=== PATIENT | male | born 1975 | race Caucasian/White ===

== ENCOUNTER 2018-11-20 07:12 | Observation (INO) ==
[2018-11-20] MEDS ORDERED: MoRPHine SULFATE 4 MG/ML 1 ML CARP\\VIAL IV STA ×2 (07:31→08:32)
[2018-11-20] MEDS ORDERED: ONDANSETRON INJ 2 MG/ML 2 ML VIAL IV STA (07:31)
[2018-11-20] MEDS ORDERED: SODIUM CHLORIDE 0.9% 1000ML 1,000 ML IV SCH (07:32)
[2018-11-20 07:49] LABS: Basophils # (auto) 0.01 K/uL (0-0.2); Basophils % (auto) 0.1 %; Eosinophils # (auto) 0.01 K/uL (0-0.5); Eosinophils % (auto) 0.1 %; Hematocrit (blood only) 42.9 % (42-52); Hemoglobin 15.2 g/dL (14.0-18.0); Immature Granulocytes # (auto) 0.03 K/uL (0.00-0.02); Immature Granulocytes % (auto) 0.2 %; Lymphocytes # (auto) 1.19 K/uL (1.2-3.4); Lymphocytes % (auto) 7.3 %; Mean Corpuscular Hgb Conc 35.4 g/dL (32-36); Mean Corpuscular Volume 83.6 fL (80-100); Mean Platelet Volume 9.2 fL (7.4-10.4); Monocytes # (auto) 0.87 K/uL (0.11-0.59); Monocytes % (auto) 5.3 %; Neutrophils # (auto) 14.28 K/uL (1.4-6.5); Platelet Count 279 K/uL (130-400); RDW Coefficient of Variation 12.9 % (11.5-14.5); RDW Standard Deviation 38.9 fL (36.4-46.3); Red Blood Count 5.13 M/uL (4.7-6.1); White Blood Count 16.39 K/uL (4.8-10.8)
--- NOTE | 2018-11-20 07:52 | Emergency Department Note ---
History of Present Illness General Chief complaint: Abdominal Pain Stated complaint: ABD PAIN Time Seen by Provider: 11/20/18 07:19 History of Present Illness Maximum Pain Intensity: 8 Patient is a 43-year-old male with past medical history significant for GERD who presents the emergency department for evaluation of upper abdominal pain, nausea and vomiting that started last evening. He states his symptoms started around 9:00 last night. He describes noting the generalized onset of bilateral upper abdominal cramping. He states that it was very uncomfortable, and kept him from sleeping. The pain steadily escalated over the next couple hours, at its worst he rated it a 10/10 around 11 PM last night. He had associated nausea, and states that he did vomit about 4 times overnight. He states that the vomiting did help with his discomfort for a short period of time. He tried taking ibuprofen for his symptoms. He feels better when he is standing upright. He denies any fever, chills, diarrhea or stool changes, he moved his bowels overnight, states that it was normal for him, without blood or melena. He denies any urinary symptoms. He states that he did feel that the pain was radiating through to his back slightly, but also states that this could be musculoskeletal because he was hitting golf balls and hitting in the batting cage yesterday. He does note feeling some increased belching and a lot of rumbling in his abdomen he still uncomfortable, but the pain is improved slightly, he rates his discomfort an 8/10. He denies any lower abdominal pain. No sick contacts at home. He denies any chest pain, palpitations or shortness of breath. Home Medications Home Medications Medication Instructions Recorded Confirmed Type omeprazole 20 mg PO DAILY 11/20/18 11/20/18 History Allergies Allergy/AdvReac Type Severity Reaction Status Date / Time No Known Allergies Allergy Unverified 11/20/18 07:44 Past Med/Surg History Medical History GERD (gastroesophageal reflux disease) (Chronic) Obesity (BMI 30.0-34.9) Surgical History History of reconstruction of anterior cruciate ligament tear (Resolved) Social History marital status: Current Living Situation: Family current occupational status: employed Feels Safe at Home: Yes Smoking Status: Never smoker Review of Systems A total of 10 systems reviewed and were otherwise negative Physical Exam Vital Signs Vital Signs - 24 hr 11/20/18 07:16 11/20/18 07:31 11/20/18 08:53 Temperature 36.6 C Temperature Source Oral Oral Sepsis Recent Fever Within 48 Hours No Sepsis New/Unexplained Change in Mental Status No Sepsis Action Taken by Nursing No Action Required Pulse Rate 70 Pulse Rate [Apical] 70 Respiratory Rate 20 18 Respiratory Depth Normal Blood Pressure 160/93 H Blood Pressure [Left Arm] 130/75 Blood Pressure Mean 115 Blood Pressure Mean [Left Arm] 93 Pulse Oximetry 97 97 Oxygen Delivery Method Room Air Room Air 11/20/18 09:47 Temperature Temperature Source Sepsis Recent Fever Within 48 Hours Sepsis New/Unexplained Change in Mental Status Sepsis Action Taken by Nursing Pulse Rate Pulse Rate [Apical] 77 Respiratory Rate 16 Respiratory Depth Blood Pressure Blood Pressure [Left Arm] 137/89 Blood Pressure Mean Blood Pressure Mean [Left Arm] 105 Pulse Oximetry 97 Oxygen Delivery Method CONSTITUTIONAL: Patient is a well-developed, well-nourished 43-year-old male who is awake and alert and in mild distress due to his stated complaint. EYES: Pupils equal, round, reactive to light and accommodation. EOMs intact without nystagmus. Sclera are anicteric. ENT: Tympanic membranes intact, with normal landmarks. External canals are clear. Oral and nasopharynx are clear. Mucous membranes are moist, no lesions, tongue and gums appear normal. CARDIOVASCULAR: Regular rate and rhythm, with normal S1 and S2, no murmur or gallop or rub is heard. No carotid bruits auscultated. No JVD. Peripheral pulses easily palpable. RESPIRATORY: Breath sounds equal and clear to auscultation without wheezes, rales, or rhonchi heard. Full and equal chest expansion without accessory muscle use or retractions. ABDOMEN: Bowel sounds are present. Abdomen is soft, nondistended, tender to percussion and palpation in the right upper quadrant and right mid abdomen, no guarding, rebound or rigidity. There is no pain in the epigastrium. No pain in the right lower quadrant over McBurney's point. INTEGUMENTARY: No lesions or rash, normal skin turgor. LYMPH: No lymphadenopathy. Course The patient was seen and assessed as above. Old records were reviewed. IV lock was initiated. He was hydrated with normal saline solution. He was made n.p.o. He was medicated with morphine 4 mg and Zofran 4 mg IV. CBC with differential, CMP and urinalysis were ordered. Right upper quadrant ultrasound was obtained. Laboratory studies noted a leukocytosis of 16,300, with left shift and bandemia. H&H is normal. Electrolytes are within normal limits. Renal functions are unremarkable. Transaminases and lipase are normal. Gallbladder ultrasound noted gallstones with mild gallbladder distention and gallbladder wall thickening measuring 4 mm with pericholecystic fluid. No intrahepatic ductal dilatation noted. Common bile duct measuring up to 6 mm. Findings are concerning for cholelithiasis with suspicious early acute calculus cholecystitis. Patient was reassessed when he returned from ultrasound. He was slightly more comfortable with the morphine, still rating his discomfort a 5/10 and was agreeable to some more medication for pain. All laboratory and diagnostic imaging studies were discussed with him. Patient was also reviewed with a ttending physician. Consultation was placed with Dr. Fox with general surgery. Patient was assessed by Dr. Fox in the emergency department and will be taken to the OR. Please refer to surgical consultation/H&P for further information. Administered Medications Discontinued Medications Sodium Chloride (Nss 1000ml) 1,000 mls @ 999 mls/hr IV .Q1H1M NERI Stop: 11/20/18 08:32 Last Infusion: 11/20/18 09:44 Dose: 0 mls/hr Documented by: [id number] Admin: 11/20/18 07:53 Dose: 999 mls/hr Documented by: [id number] Morphine Sulfate (Morphine Sulfate) 4 mg IV NOW STA Stop: 11/20/18 07:32 Last Admin: 11/20/18 07:53 Dose: 4 mg Documented by: [id number] Morphine Sulfate (Morphine Sulfate) 4 mg IV NOW STA Stop: 11/20/18 08:33 Last Admin: 11/20/18 08:52 Dose: 4 mg Documented by: [id number] Ondansetron HCl (Zofran) 4 mg IV NOW STA Stop: 11/20/18 07:32 Last Admin: 11/20/18 07:53 Dose: 4 mg Documented by: [id number] Medical Decision Making Differential Diagnosis Differential diagnoses entertained included GERD, gastritis, esophagitis, peptic ulcer disease, acute pancreatitis, biliary colic, acute cholecystitis, ascending cholangitis, infectious versus inflammatory colitis/enteritis, foodborne illness, bowel obstruction, perforation, among others. Medical Records Attestation: I reviewed the patient's medical records. Home Medications Current Medication List: was personally reviewed by me Laboratory Data Attestation: I reviewed the patient's lab results. Result diagrams: 11/20/18 07:35 11/20/18 07:35 Lab Results 11/20/18 11/20/18 Range/Units 07:35 07:35 WBC 16.39 H (4.8-10.8) K/uL RBC 5.13 (4.7-6.1) M/uL Hgb 15.2 (14.0-18.0) g/dL Hct 42.9 (42-52) % MCV 83.6 (80-100) fL MCH 29.6 (25-34) pg MCHC 35.4 (32-36) g/dL RDW Std Deviation 38.9 (36.4-46.3) fL RDW Coeff of Isidro 12.9 (11.5-14.5) % Plt Count 279 (130-400) K/uL MPV 9.2 (7.4-10.4) fL Immature Gran % (Auto) 0.2 % Neut % (Auto) 87.0 % Lymph % (Auto) 7.3 % Baker % (Auto) 5.3 % Eos % (Auto) 0.1 % Baso % (Auto) 0.1 % Immature Gran # (Auto) 0.03 H (0.00-0.02) K/uL Neut # (Auto) 14.28 H (1.4-6.5) K/uL Lymph # (Auto) 1.19 L (1.2-3.4) K/uL Baker # (Auto) 0.87 H (0.11-0.59) K/uL Eos # (Auto) 0.01 (0-0.5) K/uL Baso # (Auto) 0.01 (0-0.2) K/uL Sodium 137 (136-145) mmol/L Potassium 3.9 (3.5-5.1) mmol/L Chloride 104 (98-107) mmol/L Carbon Dioxide 26 (21-32) mmol/L Anion Gap 7.0 (3-11) BUN 15 (7-18) mg/dl Creatinine 0.89 (0.6-1.4) mg/dl Est Cr Clr Drug Dosing 139.2 ml/min Est GFR ( Amer) 123.1 Est GFR (Non-Af Amer) 106.2 BUN/Creatinine Ratio 16.6 (10-20) Glucose 127 H (70-99) mg/dl Calcium 9.1 (8.5-10.1) mg/dl Total Bilirubin 1.0 (0.2-1) mg/dl AST 16 (15-37) U/L ALT 26 (12-78) U/L Alkaline Phosphatase 99 (45-117) U/L Total Protein 7.4 (6.4-8.2) gm/dl Albumin 3.9 (3.4-5.0) gm/dl Globulin 3.5 (2.5-4.0) gm/dl Albumin/Globulin Ratio 1.1 (0.9-2) Lipase 73 (73-393) U/L Imaging Data Attestation: I personally reviewed and interpreted this imaging study as follows: Radiologist's Impression: US gallbladder CLINICAL HISTORY: 43 years-old Male presenting with RUQ PAIN, N/V. TECHNIQUE: Real-time grayscale and limited color Doppler ultrasound imaging of the abdomen limited to the right upper quadrant was performed. COMPARISON: None. FINDINGS: Pancreas: Largely obscured due to overlying bowel gas. Liver: Normal echogenicity and echotexture. The liver measures 19.9 cm in maxim al sagittal dimension. No sonographic evidence of hepatic mass. Main portal vein patent with normal directional flow. Biliary: No intrahepatic biliary ductal dilatation. Common bile duct measures up to 6 mm in diameter. Gallbladder: Gallstones with mild gallbladder distention. Gallbladder wall thi ckening measuring 4 mm. Pericholecystic fluid evident. Right kidney: Normal in appearance without evidence of hydronephrosis. Ascites: None. Other: None. IMPRESSION: Cholelithiasis with findings suspicious for early acute calculus cholecystitis. HIDA scan could be considered for further confirmation of this diagnosis. Blood Pressure Blood Pressure Findings: Elevated blood pressure Blood Pressure Disposition: elevated BP felt to be situational MDM Narrative See ED Course. Impression & Plan Acute calculous cholecystitis Discharge Plan Visit Data Chief Complaint: Abdominal Pain Stated Complaint: ABD PAIN ED Provider: Gael Jade ED Midlevel Provider: Bautista Sanchez Discharge Problem: Acute calculous cholecystitis Patient Disposition: Being Evaluated by Surgeon Discharge Instructions Interventions: ED Discharge Assessment Last Done: 11/20/18 09:49 Forms Stand Alone Forms: Call Back Authorization, [facility] Prescriptions Prescriptions: No Action omeprazole 20 mg capsule,delayed release(DR/EC) 20 mg PO DAILY RF: 0 Referrals Referrals: Renetta Alvarado PA-C [Primary Care Provider] -
[2018-11-20 08:06] LABS: Albumin Level 3.9 gm/dl (3.4-5.0); BUN Creatinine Ratio 16.6 (10-20); Calcium 9.1 mg/dl (8.5-10.1); Creatinine Clr Calc Pharmacy 139.2 ml/min; Est GFR (African American) 123.1; Est GFR (Non-African American) 106.2; Potassium 3.9 mmol/L (3.5-5.1)
[2018-11-20 08:09] LABS: Albumin Globulin Ratio 1.1 (0.9-2); Globulin 3.5 gm/dl (2.5-4.0); Total Protein 7.4 gm/dl (6.4-8.2)
--- NOTE | 2018-11-20 08:21 | Ultrasound Report ---
US gallbladder CLINICAL HISTORY: 43 years-old Male presenting with RUQ PAIN, N/V. TECHNIQUE: Real-time grayscale and limited color Doppler ultrasound imaging of the abdomen limited to the right upper quadrant was performed. COMPARISON: None. FINDINGS: Pancreas: Largely obscured due to overlying bowel gas. Liver: Normal echogenicity and echotexture. The liver measures 19.9 cm in maximal sagittal dimension. No sonographic evidence of hepatic mass. Main portal vein patent with normal directional flow. Biliary: No intrahepatic biliary ductal dilatation. Common bile duct measures up to 6 mm in diameter. Gallbladder: Gallstones with mild gallbladder distention. Gallbladder wall thickening measuring 4 mm. Pericholecystic fluid evident. Right kidney: Normal in appearance without evidence of hydronephrosis. Ascites: None. Other: None. IMPRESSION: Cholelithiasis with findings suspicious for early acute calculus cholecystitis. HIDA scan could be co nsidered for further confirmation of this diagnosis. Electronically signed by: Inocencio Hanks M.D. 11/20/2018 8:20 AM
[2018-11-20] MEDS ORDERED: BUPIVACAINE 0.5 % 5 MG/1 ML MPF 30ML VIAL ONE (09:46)
[2018-11-20] MEDS ORDERED: DEXAMETHASONE SOD INJ 4 MG/ML VIAL ONE (09:48)
[2018-11-20] MEDS ORDERED: NEOSTIGMINE METHYLSULFATE 5 MG/5 ML SYR ONE (09:48)
[2018-11-20] MEDS ORDERED: GLYCOPYRROLATE 0.2 MG/ML VIAL ONE (09:48)
[2018-11-20] MEDS ORDERED: ONDANSETRON INJ 2 MG/ML 2 ML VIAL ONE (09:48)
[2018-11-20] MEDS ORDERED: LIDOCAINE HCL 2% 2 ML VIAL/AMP(20MG/ML) INFIL ONE (09:48)
[2018-11-20] MEDS ORDERED: MIDAZOLAM HCL 1 MG/ML 2ML VIAL ONE (09:48)
[2018-11-20] MEDS ORDERED: PROPOFOL IV EMULSION 10 MG/ML 20 ML VIAL IV ONE (09:48)
[2018-11-20] MEDS ORDERED: HYDROmorphone INJ 1 MG/ML SYRINGE IV PRN (09:49)
[2018-11-20] MEDS ORDERED: ONDANSETRON INJ 2 MG/ML 2 ML VIAL IV PRN (09:49)
[2018-11-20] MEDS ORDERED: fentaNYL citrate 100 MCG/2 ML VIAL ONE (09:49)
[2018-11-20] MEDS ORDERED: KETOROLAC 30 MG/ML VIAL IV PRN (09:49)
[2018-11-20] MEDS ORDERED: ATROPINE SULFATE 0.1 MG/ML 10ML SYR IV PRN (09:49)
--- NOTE | 2018-11-20 09:49 | Anesthesiology Consultation ---
Date of Service November 20, 2018 Assessment & Plan (1) Encounter for pre-operative examination: Chart Review Chart Review: Acceptable Risk for Surgery History Surgery Operation Date: 11/20/18 10:00 Proposed Procedures p Laparoscopic Cholecystectomy - Felix Fox DO, FACS Height/Weight Height: 5 ft 11 in Weight: 112.3 kg Allergies Allergy/AdvReac Type Severity Reaction Status Date / Time No Known Allergies Allergy Unverified 11/20/18 07:44 Medications Home Medications Medication Instructions Recorded Confirmed Last Taken omeprazole 20 mg PO DAILY 11/20/18 11/20/18 11/20/18 Past Medical History Medical History GERD (gastroesophageal reflux disease) (Chronic) Obesity (BMI 30.0-34.9) Past Surgical History Surgical History History of reconstruction of anterior cruciate ligament tear (Resolved) Social History Smoking Status: Never smoker Physical Exam Vital Signs Last Vital Signs Temp 36.6 C 11/20/18 07:16 Pulse 77 11/20/18 09:47 Resp 16 11/20/18 09:47 BP 137/89 11/20/18 09:47 Pulse Ox 97 11/20/18 09:47 Testing Laboratory Results 11/20/18 07:35 11/20/18 07:35
--- NOTE | 2018-11-20 09:53 | History & Physical Report ---
Date of Service November 20, 2018 Assessment & Plan (1) Cholecystitis with cholelithiasis: 43-year-old male with acute calculus cholecystitis. Plan for laparoscopic cholecystectomy, possible cholangiogram The risks the procedure were discussed to include but not limited to bleeding, infection, retained stone, bile leak, damage surrounding structures including common bile duct, need for future more extensive surgery, conversion to open, and the risk of anesthesia Antibiotics preop Plan of care discussed the patient, all questions were answered, the patient expressed understanding agrees the plan of care as stated. Present on Admission?: Yes History of Present Illness Primary Care Provider: Renetta Alvarado PA-C 43-year-old male presented to the emergency department with abdominal pain starting last evening. He had ice cream in about 1 to 2 hours later he started noticing some cramping pain in his right upper quadrant along with some bloating and nausea. He did have some emesis. Pain persisted and this morning presented to the emergency department where he was otherwise stable. His white blood cell count was elevated but had normal LFTs, and an ultrasound showed cholelithiasis with concerns for cholecystitis but a normal common bile duct. Otherwise healthy, not on any blood thinners. He has never had symptoms like this before. Allergies Allergy/AdvReac Type Severity Reaction Status Date / Time No Known Allergies Allergy Unverified 11/20/18 07:44 Home Medications Home Medications Medication Instructions Recorded Confirmed Type omeprazole 20 mg PO DAILY 11/20/18 11/20/18 History Past Med/Surg History Medical History GERD (gastroesophageal reflux disease) (Chronic) Obesity (BMI 30.0-34.9) Surgical History History of reconstruction of anterior cruciate ligament tear (Resolved) Social History marital status: Current Living Situation: Family current occupational status: employed Feels Safe at Home: Yes Smoking Status: Never smoker Review of Systems Review of Systems: All systems reviewed & are unremarkable except as noted in HPI & below Physical Exam Constitutional: WD/WN, vitals as above Eyes: PERRL, conjunctivae normal, anicteric sclerae ENMT: external ear and nose normal, oropharynx normal Neck: trachea midline, no thyromegaly Respiratory: normal respiratory effort, lungs clear to auscultation Cardiovascular: RRR, no murmur, no edema Gastrointestinal (Abdomen): Percussion/Palpation: + abdomen tender (Tender to palpation in right upper quadrant, negative Rausch's) and abdomen soft; no guarding and abdomen not rigid Musculoskeletal: no cyanosis or clubbing, extremities motor strength 5/5 Skin: no rashes, warm and dry Neurologic: patellar DTR's 2+ bilat, sensation intact Psychiatric: A+Ox3, euthymic affect Lymphatic: no cervical or axillary lymphadenopathy Results & Data Vital Signs (Past 12 Hours) Vital Signs Temp Pulse Pulse Resp BP BP Pulse Ox 11/20/18 09:47 77 16 137/89 97 11/20/18 08:53 70 18 130/75 97 11/20/18 07:16 36.6 C 70 20 160/93 H 97 Laboratory Results Laboratory Results - last 24 hr 11/20/18 11/20/18 07:35 07:35 WBC 16.39 H RBC 5.13 Hgb 15.2 Hct 42.9 MCV 83.6 MCH 29.6 MCHC 35.4 RDW Std Deviation 38.9 RDW Coeff of Isidro 12.9 Plt Count 279 MPV 9.2 Immature Gran % (Auto) 0.2 Neut % (Auto) 87.0 Lymph % (Auto) 7.3 Bond % (Auto) 5.3 Eos % (Auto) 0.1 Baso % (Auto) 0.1 Immature Gran # (Auto) 0.03 H Neut # (Auto) 14.28 H Lymph # (Auto) 1.19 L Bond # (Auto) 0.87 H Eos # (Auto) 0.01 Baso # (Auto) 0.01 Sodium 137 Potassium 3.9 Chloride 104 Carbon Dioxide 26 Anion Gap 7.0 BUN 15 Creatinine 0.89 Est Cr Clr Drug Dosing 139.2 Est GFR ( Amer) 123.1 Est GFR (Non-Af Amer) 106.2 BUN/Creatinine Ratio 16.6 Glucose 127 H Calcium 9.1 Total Bilirubin 1.0 AST 16 ALT 26 Alkaline Phosphatase 99 Total Protein 7.4 Albumin 3.9 Globulin 3.5 Albumin/Globulin Ratio 1.1 Lipase 73 Diagnostic Findings US gallbladder CLINICAL HISTORY: 43 years-old Male presenting with RUQ PAIN, N/V. TECHNIQUE: Real-time grayscale and limited color Doppler ultrasound imaging of the abdomen limited to the right upper quadrant was performed. COMPARISON: None. FINDINGS: Pancreas: Largely obscured due to overlying bowel gas. Liver: Normal echogenicity and echotexture. The liver measures 19.9 cm in maximal sagittal dimension. No sonographic evidence of hepatic mass. Main portal vein patent with normal directional flow. Biliary: No intrahepatic biliary ductal dilatation. Common bile duct measures up to 6 mm in diameter. Gallbladder: Gallstones with mild gallbladder distention. Gallbladder wall thickening measuring 4 mm. Pericholecystic fluid evident. Right kidney: Normal in appearance without evidence of hydronephrosis. Ascites: None. Other: None. IMPRESSION: Cholelithiasis with findings suspicious for early acute calculus cholecystitis. HIDA scan could be considered for further confirmation of this diagnosis.
[2018-11-20] MEDS ORDERED: TRANEXAMIC ACID 100 MG/ML 10 ML VIAL ONE (10:16)
[2018-11-20] MEDS ORDERED: KETOROLAC 30 MG/ML VIAL ONE (10:59)
--- NOTE | 2018-11-20 11:06 | Operative Report ---
Post Operative Report Pre & Post Diagnosis Operation Date: 11/20/18 10:00 Pre-Op Diagnosis: Cholecystitis with cholelithiasis Post-Op Diagnosis: Cholecystitis with cholelithiasis Procedure Operation Date: 11/20/18 10:00 Actual Procedures p Laparoscopic Cholecystectomy(Not Applicable) - Felix Fox DO, MAUDE Surgeon Felix Fox DO, FACS Epidemiology Investigator Meena Santana Estimated Blood Loss 4 Findings Consistent with Post-Op Diagnosis Acute cholecystitis. Critical view of safety obtained, cystic duct and artery doubly clipped and divided. Good hemostasis. Specimens Gallbladder Anesthesia Type General Complications none Disposition Accompanied Patient To Recovery: No Disposition: Recovery Room Indications 43-year-old male presented with signs and symptoms cystitis confirmed by ultrasound. Plan for laparoscopic cholecystectomy with possible cholangiogram. The risks of the procedure were discussed, all questions were answered, and the patient agreed to proceed with surgery as planned. Description of Procedure The patient was properly identified, consented, and taken to the operating room where he was placed in the supine position. General endotracheal anesthesia was induced. SCDs and a safety belt were placed. Preoperative antibiotics were administered. The patient's abdomen was prepped and draped in the standard sterile fashion. A surgical timeout was performed and all parties were in agreement that this was the correct patient and procedure to be performed and we continued as planned. An incision was made superior and to the left of the umbilicus overlying the rectus muscle and the Veress needle was inserted. Saline drop test confirmed entry into the peritoneum. The abdomen was insufflated with carbon dioxide which the patient tolerated without incident. The abdomen was then entered using the Optiview technique and a 5 mm trocar. The laparoscope was inserted and no damage from initial trocar or Veress needle placement was noted, no gross abnormalities were noted within the 4 quadrants of the abdomen. An 11 mm port was placed in the subxiphoid position and two 5 mm ports were then placed in the right subcostal position. The patient was placed in reverse Trendelenburg position and rotated towards the left. The gallbladder was acutely inflamed. It was aspirated to allow for retraction. The dome of the gallbladder was retracted towards the left upper quadrant and the infundibulum was retracted toward the right lower quadrant revealing Calot's triangle. Peritoneal attachments were taken down with electrocautery and blunt dissection. The cystic duct and artery were circumferentially dissected. A window of safety was obtained showing the cystic duct entering the gallbladder with no aberrant structures noted. The cystic duct and artery were doubly clipped and divided. The gallbladder was then lifted off the gallbladder fossa with electrocautery. The gallbladder was placed in an Endo Catch bag and removed through the subxiphoid port site. The right upper quadrant was irrigated and hemostasis was found to be good. 5 mm trochars were removed under direct visualization and the abdomen was allowed to collapse. The subxiphoid port site fascia was closed with 0 Vicryl suture. The wound was irrigated, and the skin of all ports was closed with 4-0 Monocryl subcuticular sutures. Dermabond was placed over the wounds. The patient was extubated in the operating room and taken to the PACU where he recovered without apparent incident. All sponge, instrument and needle counts were correct at the conclusion of the procedure. The patient tolerated the procedure well. The physician's senior assistant manager was present and scrubbed for the entirety of the case and was essential in positioning the patient, prepping and draping, retraction and exposure, driving the laparoscope, removal of the gallbladder, closure the incisions, and placement of the dressings. I attest to the content of the Intraoperative Record and any orders documented therein. Any exceptions are noted below.
[2018-11-20] MEDS ORDERED: OXYCODONE/ACETAMINOPHEN 5mg/325mg TAB PO PRN ×2 (11:23)
[2018-11-20] MEDS ORDERED: MoRPHine SULFATE 4 MG/ML 1 ML CARP\\VIAL IV PRN (11:23)
[2018-11-20] MEDS ORDERED: MoRPHine SULFATE 2 MG/ML CARP IV PRN ×2 (11:23)
[2018-11-20] MEDS ORDERED: cefOXitin 2,000 MG in DEXTROSE 5% 50 ML IV STA (11:47)
--- NOTE | 2018-11-20 12:02 | Anesthesiology Progress Note ---
Date of Service November 20, 2018 Anesthesia Post Procedure Vital Signs Vital Signs: Temp Pulse Pulse Resp BP BP Pulse Ox 11/20/18 12:00 36.6 C 65 16 115/72 94 11/20/18 11:50 70 16 111/71 94 11/20/18 11:40 70 16 127/75 99 11/20/18 11:30 81 18 121/70 100 11/20/18 11:22 36.8 C 94 H 18 132/84 100 11/20/18 09:47 77 16 137/89 97 11/20/18 08:53 70 18 130/75 97 11/20/18 07:16 36.6 C 70 20 160/93 H 97 Pain Intensity Bilateral Abdomen: Pain Intensity: 4 Transfer of Care Handoff Completed per policy Notes Mental Status: alert / awake / arousable Patient Amnestic to Procedure: Yes Nausea / Vomiting: adequately controlled Pain: adequately controlled Airway Patency, RR, SpO2: stable & adequate BP & HR: stable & adequate Hydration State: stable & adequate Anesthetic Complications: no major complications apparent
[2018-11-20] MEDS: LACTATED RINGER'S 1,000 ML IV SCH ×2 (12:48→19:00)
[2018-11-20] MEDS ORDERED: IBUPROFEN 600 MG TAB PO PRN (15:52)
[2018-11-21] MEDS: LACTATED RINGER'S 1,000 ML IV SCH (03:14)
--- NOTE | 2018-11-21 08:43 | Anesthesiology Progress Note ---
Date of Service November 21, 2018 Anesthesia Post Procedure Vital Signs Vital Signs: Temp Pulse Pulse Pulse Resp BP BP 11/21/18 08:01 36.7 C 87 75 18 138/75 114/72 11/21/18 07:30 36.7 C 75 18 138/75 11/21/18 03:10 36.9 C 74 19 114/72 11/20/18 23:41 37.1 C 76 19 114/72 11/20/18 18:58 37.0 C 55 L 18 137/82 11/20/18 15:14 37.0 C 87 18 122/76 11/20/18 14:15 36.5 C 85 16 120/75 11/20/18 13:15 36.9 C 69 16 126/79 11/20/18 12:47 36.7 C 66 16 119/75 11/20/18 12:15 37 C 84 16 121/75 11/20/18 12:00 36.6 C 65 16 115/72 11/20/18 11:50 70 16 111/71 11/20/18 11:40 70 16 127/75 11/20/18 11:30 81 18 121/70 11/20/18 11:22 36.8 C 94 H 18 132/84 11/20/18 09:47 77 16 137/89 11/20/18 08:53 70 18 130/75 Pulse Ox 11/21/18 08:01 95 11/21/18 07:30 95 11/21/18 03:10 94 11/20/18 23:41 92 11/20/18 18:58 95 11/20/18 15:14 95 11/20/18 14:15 95 11/20/18 13:15 96 11/20/18 12:47 94 11/20/18 12:15 95 11/20/18 12:00 94 11/20/18 11:50 94 11/20/18 11:40 99 11/20/18 11:30 100 11/20/18 11:22 100 11/20/18 09:47 97 11/20/18 08:53 97 Pain Intensity Bilateral Abdomen: Pain Intensity: 1 Notes Mental Status: alert / awake / arousable Patient Amnestic to Procedure: Yes Nausea / Vomiting: adequately controlled Pain: adequately controlled Airway Patency, RR, SpO2: stable & adequate BP & HR: stable & adequate Hydration State: stable & adequate Anesthetic Complications: no major complications apparent
[2018-11-21] MEDS ORDERED: PANTOprazole 40 MG TAB PO SCH (09:00)
--- NOTE | 2018-11-21 09:08 | Surgery Progress Note ---
Date of Service November 21, 2018 Assessment & Plan (1) S/P cholecystectomy: s/p lap cholecystectomy, doing well d/c to home percocet prn pain activity restrictions, wound care instructions, and return precautions reviewed f/u in 2 weeks note for work on chart Subjective POD#1 lap cholecystectomy, doing well. Pain improved, tolerating diet, wants to go home Physical Exam Constitutional: WD/WN, vitals as above Gastrointestinal (Abdomen): abd soft, appropriately ttp, incision c/d/i, no e/o infection Results & Data Vital Signs (Past 12 Hours) Vital Signs Temp Pulse Pulse Resp BP BP Pulse Ox 11/21/18 08:01 36.7 C 87 75 18 138/75 114/72 95 11/21/18 07:30 36.7 C 75 18 138/75 95 11/21/18 03:10 36.9 C 74 19 114/72 94 11/20/18 23:41 37.1 C 76 19 114/72 92
--- NOTE | 2018-11-29 14:30 | Discharge Summary ---
Date of Service November 29, 2018 Admission HPI Per Admitting Provider 43-year-old male presented to the emergency department with abdominal pain starting last evening. He had ice cream in about 1 to 2 hours later he started noticing some cramping pain in his right upper quadrant along with some bloating and nausea. He did have some emesis. Pain persisted and this morning presented to the emergency department where he was otherwise stable. His white blood cell count was elevated but had normal LFTs, and an ultrasound showed cholelithiasis with concerns for cholecystitis but a normal common bile duct. Otherwise healthy, not on any blood thinners. He has never had symptoms like this before. Principal Diagnosis Cholecystitis with Cholelithiasis Discharge Data Allergies Allergy/AdvReac Type Severity Reaction Status Date / Time No Known Allergies Allergy Unverified 11/20/18 07:44 Procedures Performed Operation Date: 11/20/18 10:00 Actual Procedures p Laparoscopic Cholecystectomy(Not Applicable) - Felix Fox DO, FACS Ordered Studies 11/20/18 07:31 gallbladder Stat Hospital Course (1) S/P cholecystectomy: s/p lap cholecystectomy, doing well d/c to home percocet prn pain activity restrictions, wound care instructions, and return precautions reviewed f/u in 2 weeks note for work on chart Total Time Total Time Spent Total Time Spent (In Minutes): 5 Discharge Plan Discharge Items Patient Disposition: Home - Self-Care Reason For Visit: S/P LAPAROSCOPIC CHOLECYSTECTOMY Discharge Diagnosis: Acute Cholecystitis Discharge Goals: Decrease discomfort and Improve function Activity: As commented below Lifting: No more than 10 pounds Bathing Comment: May shower in 24 hrs, but do not soak or scrub your incisions. Exercise/Sports: Wait until after follow-up appointment Driving/Machine Use: Resume 1 day after discharge Non-emergency contact: Surgeon Call non-emergency contact if: you have any medication questions, your pain is not controlled, your temperature is above 101.5, your wound has increased redness and your wound has increased drainage Follow-up/Referrals: Felix Fox DO, FACS [Physician] - (Please call the General Surgery clinic at [phone] to schedule a follow-up appointment with Dr. Fox. Your appointment should be in 1-2 weeks. Please call with any questions or concerns.) Renetta Alvarado PA-C [Primary Care Provider] - Diet: Regular Addtl Provider Instructions: You have surgical glue, Dermabond, over your incisions. You have a gauze dressing over your upper abdominal incision. You may remove it in 24 hrs and shower. Do not pick or peel at the surgical glue. Do not soak or submerge your incisions. Please call the General Surgery clinic with any questions or concerns. Please call the General Surgery clinic to make a follow-up appointment. Prescriptions: Continued omeprazole 20 mg capsule,delayed release(DR/EC) 20 mg PO DAILY RF: 0 Stand-Alone Forms: Call Back Authorization, [facility], [facility], Work/School Release (Inpt) [employer]/Other Patient Handouts: Surgery Prevent DVT After Discharge Orders: Discharge Order (Routine); Ordered 11/21/18 Ordered By: Felix Fox Admission Data Admit Date/Time: 11/20/18 11:23 Attending Provider: Felix Fox Admit Provider: Felix Fox Primary Care Provider: Renetta Alvarado Service: Surgical Services Other Interventions: Discharge Summary Assessment (RN) Last Done: 11/21/18 08:01 Pending Studies at Discharge: Yes Studies:: Pathology report. DC Date/Time DO NOT enter until pt leaves facility: 11/21/18 10:05
== END 2018-11-21 10:05 | disposition home or self-care (01) ==
LOC: ED 07:12 → 3N 09:49 → OR 09:49
DX: K82.4 Cholesterolosis of gallbladder; R10.11 Right upper quadrant pain; E66.9 Obesity, unspecified; Z68.30 Body mass index [BMI] 30.0-30.9, adult; K80.00 Calculus of gallbladder with acute cholecystitis without obstruction